=== PATIENT | female | born 1965 | race African-American/Black ===

== ENCOUNTER 2017-12-03 14:47 | Emergency (ER) | payer MEDICAID, MEDICARE ==
[~2017-12-03] VITALS: Ht 176.5 cm; Wt 125.4 kg
[2017-12-03 14:57] VITALS: BP 108/74
[2017-12-03] MEDS ORDERED: LIDOCAINE-MPF 1%, 2ML ONE (15:24)
[2017-12-03] MEDS ORDERED: DIPH,PERTUSS(ACELL),TET VAC/PF 0.5 ML IM-VACC ONE ×2 (15:24→15:30)
[2017-12-03] MEDS ORDERED: LIDOCAINE 1%, 10ML INFIL ONE (15:30)
[2017-12-03] MEDS ORDERED: LORazepam 1MG TABLET ONE (15:48)
[2017-12-03] MEDS ORDERED: LORazepam 1MG TABLET PO ONE (16:00)
== END 2017-12-03 17:46 | disposition home or self-care (01) ==
LOC: ED 17:40
DX: L03.011 Cellulitis of right finger (principal); I10 Essential (primary) hypertension; Z90.49 Acquired absence of other specified parts of digestive tract; K51.90 Ulcerative colitis, unspecified, without complications
CPT/HCPCS: 10060; 90715; 96372; 99283